=== PATIENT | male | born 1965 | race Caucasian/White ===

== ENCOUNTER → 2016-05-29 | Outpatient (CLI) | payer OTHER ==
[~2016-05-29] MED LIST: GADOBUTROL 7.5 MMOL/7.5 ML VIAL IV ONE; HYDR-2161 PO
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
== END | disposition home or self-care (01) ==
LOC: KCIC MRI 11:25
PROVIDERS: ATTEND Family Medicine
DX: M48.06 Spinal stenosis, lumbar region (principal); I10 Essential (primary) hypertension
CPT/HCPCS: 72158; A9585

== ENCOUNTER → 2016-07-11 | Outpatient (CLI) | payer OTHER ==
[~2016-07-11] MED LIST changes: +ALPR0.25 PO; -GADOBUTROL 7.5 MMOL/7.5 ML VIAL IV ONE; +HYDR-2762 PO; +POTA20TA4 PO
--- NOTE | 2016-07-12 01:41 | PAIN ---
DATE OF SERVICE: 07/11/2016 DIAGNOSES: Lumbar radiculopathy with lumbar degenerative disk disease and post-lumbar laminectomy syndrome. HISTORY OF PRESENT ILLNESS: The patient is a 51-year-old male who returns for followup, last seen several years ago, but has significant pain returning now in the base of the low back and in the bilateral lower extremities, worse on the right than the left with posterior gluteus, posterior lateral thigh, posterior thigh, posterior lower leg, lateral lower leg and into the foot involving all his toes, especially the lateral toes on the right side, but also into the left posterior gluteus, posterior lateral thigh with some burning sensation, tingling and numbness radiation, stabbing, throbbing, sharp shooting pains, burning, aching as well. The patient reports it is difficult to sit, stand and walk secondary to the pain. He had recently had an MRI scan of the lumbar spine showing multilevel degenerative disk disease, significant at L3-L4, the right eccentric disk protrusion, abuts the descending right L4 nerve, also L5-S1 central disk extrusion with mild inferior migration abutting the left S1 nerve, but not causing mass effect and asymmetric disk height, worse on the left. The patient reports it is much worse with standing, walking, changing positions, reports it awakens him from sleep once or twice a night, but not every night, does not affect his bowel or bladder control significantly, but does affect his ability to walk, he is using a cane currently in his right hand. The patient reports his disability rating from 0 to 10, 10 being the worst, as a 7 with family and home responsibilities and recreation, 8 with sexual behavior, 5 with social activity, 5 with self-care and life support activities. The patient has been taking hydrocodone also exercising, doing some stretching. He had physical therapy in the past as well as counseling on exercises that he continues to do at home that he was shown in his physical therapy classes in the past, but reports that this is not significantly helping. He is trying to walk every day, but it has been limiting his ability to do so as well secondary to pain radiating into his back and lower extremities. PAST MEDICAL HISTORY: Significant for hypertension, some urinary retention, arthritis, leg weakness. PREVIOUS SURGERY: Include lumbar diskectomy L4-L5, right rotator cuff repair, patchy left lung, lung lavage, and previous kidney stones. CURRENT MEDICATIONS: List includes Xanax, hydrocodone and potassium replacement. ALLERGIES: The patient has no known drug allergies. FAMILY HISTORY: Significant for no major medical problems or conditions that he is aware of. SOCIAL HISTORY: The patient does not drink alcohol, does not smoke. He is single, has 2 children living at home and lives locally in [place], [place]. REVIEW OF SYSTEMS: The patient's review of systems is positive for those items mentioned in history of present illness. All systems reviewed and otherwise negative. It is complete, full and well documented on the patient's chart. PHYSICAL EXAMINATION: VITAL SIGNS: The patient's blood pressure 128/85, pulse 80, respirations 18, temperature 98.8 degrees Fahrenheit, height is 5 feet 6 inches, weight is 137 pounds. GENERAL: The patient is awake, alert, oriented, appropriate, very pleasant demeanor. HEENT: Head shows normocephalic, atraumatic. Extraocular movements are intact and symmetrical. Oral cavity shows mucous membranes moist and pink. Dentition is intact. NECK: Shows anterior throat supple without palpable lymphadenopathy noted. Swallow reflex is symmetrical. Neck shows full rotational motion of cervical spine, both laterally as well as extension and flexion without difficulty. CHEST: Shows breath sounds clear to auscultation bilaterally. Normal on inspection. No wheezes, rales or rhonchi are auscultated. HEART: Shows S1 and S2 clear. No murmurs auscultated. ABDOMEN: Soft, nontender, nondistended. No palpable organomegaly is noted. No rebound or guarding demonstrated. BACK: The patient's back shows spine grossly in the midline. Well-healed surgical scar is noted in the lumbar distribution with some minor flattening of lumbar lordotic curvature. Normal thoracic kyphotic curvature. Lumbar paraspinous musculature shows symmetrical on inspection with palpation shows very firm stiff musculature throughout the upper, middle and lower distribution of paraspinous muscles, which is moderately tender, but not with radiation. The patient shows no trigger points, no asymmetry of the lumbar paraspinous musculature, with palpation over the sacrum shows nontender over the sacroiliac regions. The patient shows good rotational motion about 10 degrees, right and left lateral as well as extension to greater than 10 degrees, forward flexion at 45 degrees without significant pain reported in the low back. Lower extremities show deep tendon reflexes 1+ in the patellar and tendo calcaneus tendons are equal. Motor exam is strong with dorsiflexion, extension, quadriceps and hamstring flexion, about 4/5 on the right and 5/5 on the left throughout. Peripheral pulses are 1+ posterior tibial and dorsalis pedis pulses. No peripheral edema is noted. No clubbing, no cyanosis. Lower extremities are warm and dry to touch, equal in color and appearance. Straight leg raise noted to be grossly positive on the right at about 40 degrees, with pain into the posterior gluteus, posterior thigh, lateral thigh, which is decreased with knee flexion. Left side is negative. Gaenslen's and Parrish's maneuvers are negative bilaterally as well. He is able to stand. It is difficult to try to stand on his toes as he loses balance and loses balance from putting all his weight on his right foot. He is walking with a slight shuffling gait, appears to favor the right lower extremity and again has a cane with him using in his right hand. IMPRESSION: 1. This is a 51-year-old male with long history of low back, bilateral lower extremity pain, worse on the right side than the left with radicular symptoms as noted. 2. MRI scan as noted. 3. Hypertension. 4. Arthritis. PLAN: Options were discussed with the patient including conservative medical management, physical therapy, interventional technique. He would like to pursue interventional techniques as he is currently doing physical therapy exercises on his own and walking as best he can. We will wait for preauthorization with his insurance provider. We will plan on return to the clinic in approximately 1 week for caudal approach epidural steroid injection at that time. MARIUSZ BAKER MD DR: CHRISTIAN/richie JOB#: [id number] / [id number]
== END | disposition home or self-care (01) ==
LOC: PNCL 10:26
PROVIDERS: ATTEND Anesthesiology
DX: M51.16 Intervertebral disc disorders with radiculopathy, lumbar region (principal); M96.1 Postlaminectomy syndrome, not elsewhere classified
CPT/HCPCS: 99214

== ENCOUNTER → 2016-07-25 | Outpatient (CLI) | payer OTHER ==
[~2016-07-25] MED LIST changes: +IOHEXOL 180 MG/ML 10 ML VIAL. ONE; +methylPREDNISolone ACETATE 40 MG/ML VIAL. ONE; +methylPREDNISolone ACETATE 80 MG/ML VIAL. ONE
--- NOTE | 2016-07-25 14:11 | PAIN ---
DATE OF SERVICE: 07/25/2016 PROGRESS NOTE FOR PAIN CLINIC DIAGNOSES: Lumbar radiculopathy with lumbar degenerative disk disease and lumbar post-laminectomy syndrome. HISTORY OF PRESENT ILLNESS: The patient is a 51-year-old male, who returns for followup status post initial evaluation and preauthorization for a caudal epidural steroid injection. The patient ____ this returns today reporting still significant pain in the low back, bilateral lower extremities, somewhat worse on the right than the left with pain in the right great toe as well, which having fusion ____. The patient reports pain anywhere from 5 to 9 on a scale 10, currently at 5, this is aching, sharp, dull, tight shooting radiating constant, can be severe with activity. The patient reports no new motor or sensory deficits, no new bowel or bladder incontinence, but still significant pain is noted in the low back and lower extremities. PHYSICAL EXAMINATION: VITAL SIGNS: The patient's blood pressure 116/78, pulse 77, respirations are 18, temperature 98.1 degrees Fahrenheit. Height is 5 feet 6 inches, weighs 140 pounds. GENERAL: The patient is awake, alert, oriented, appropriate, very pleasant demeanor. HEENT: Shows normocephalic, atraumatic. Extraocular movements are intact and symmetrical. Oral cavity shows mucous membranes moist and pink. Dentition intact. NECK: Shows anterior throat supple. CHEST: Shows normal on inspection. Breath sounds are clear to auscultation bilaterally. HEART: Shows S1 and S2 clear. ABDOMEN: Soft, nontender, nondistended. No palpable organomegaly is noted. No rebound or guarding demonstrated. BACK: Shows spine grossly midline, some flattening of lumbar lordotic curvature is again appreciated. Lumbar paraspinous musculature shows some moderate tenderness with palpation diffusely in the middle and lower distribution, but without radiation, asymmetry and musculature tight firm, but normal muscle girth. No tenderness over the sacrum or sacroiliac regions. EXTREMITIES: Lower extremities show deep tendon reflexes at 1+ in the patellar and tendo calcaneus tendons are equal. Motor exam is strong with approximately 4 on a scale of 5, the right dorsiflexion and extension and 5/5 on the left. Options were discussed with the patient and the patient's old chart was reviewed and his current medication regimen updated. Current review of systems updated today as well. We will proceed with a caudal approach epidural steroid injection today with fluoroscopic guidance. Risks were then discussed including, but not limited to bleeding, infection, possibility of epidural hematoma, subsequent neurological compromise, dural punctures, headaches, spinal cord and/or nerve damage, side effects of steroid medication and poor results regarding pain control. The patient understands and wishes to proceed. The patient will return to clinic in approximately 2 weeks for followup, was counseled on return appointment, activity level and side effects to be aware of. DIAGNOSES: Lumbar radiculopathy with lumbar degenerative disk disease and post-lumbar laminectomy syndrome. PROCEDURES: Lumbar caudal approach epidural steroid injection using C-arm fluoroscopic guidance under sterile prep using local anesthetic. MEDICATION INJECTED: Depo-Medrol 120 mg plus 10 mL preservative-free normal saline and 2 mL of Isovue for contrast. CONDITION AT DISCHARGE: Stable. The patient tolerated procedure well and no complications. MARIUSZ BAKER MD DR: CHRISTIAN/richie JOB#: [id number] / [id number]
== END | disposition home or self-care (01) ==
LOC: PNCL 09:21
PROVIDERS: ATTEND Anesthesiology
DX: M51.16 Intervertebral disc disorders with radiculopathy, lumbar region (principal); M96.1 Postlaminectomy syndrome, not elsewhere classified
CPT/HCPCS: 62323; J1030; J1040

== ENCOUNTER → 2016-08-08 | Outpatient (CLI) | payer OTHER ==
--- NOTE | 2016-08-09 01:23 | PN ---
DATE: 08/08/2016 PROGRESS NOTE FOR PAIN CLINIC DIAGNOSES: Lumbar radiculopathy with lumbar degenerative disk disease and post lumbar laminectomy syndrome. HISTORY OF PRESENT ILLNESS: The patient is a 51-year-old male who returns for followup status post caudal approach epidural steroid injection x 1. The patient reports he did very well, at least 75% improvement for the first few days and reduced by 50% improvement until he slipped and fell on some surfaces and stubbed his foot and toe twisting his ankle on the right side. This has been causing some increased pain and he has been walking with a limp and that has been making his back hurt more on the left side. The patient reports otherwise doing fairly well. No new motor or sensory deficits, no new bowel or bladder incontinence or other complaints, rates his pain anywhere from a 5-9 on a scale of 10, it is currently a 5 at this point. The patient reports no new changes. PHYSICAL EXAMINATION: VITAL SIGNS: Today, the patient's blood pressure is 143/72, pulse 78, respirations are 16, temperature is 97.9 degrees Fahrenheit. Weight is 133 pounds. GENERAL: The patient is awake, alert, oriented, appropriate, has a very pleasant demeanor. HEENT: Normocephalic, atraumatic. Extraocular movements are intact and symmetrical. Oral cavity, mucous membranes are moist and pink. Dentition is intact. NECK: Shows anterior throat supple without palpable lymphadenopathy noted. Swallow reflex is symmetrical. CHEST: Normal on inspection. Breath sounds are clear to auscultation bilaterally. HEART: Shows S1 and S2 clear. ABDOMEN: Soft, nontender, nondistended. No palpable organomegaly is noted. No rebound or guarding demonstrated. BACK: Shows spine grossly in the midline. Lumbar paraspinous musculature shows some moderate tenderness with palpation, well-healed surgical scars again noted. Some flattening of lumbar lordotic curvature is demonstrated. The patient shows good rotational motion of the lumbar spine without significant pain or difficulty. EXTREMITIES: The patient's lower extremities showed deep tendon reflexes at 1+ in the patellar and tendo calcaneus tendons are equal. Motor exam is approximately 4 on a scale of 5 with right dorsiflexion, extension and 5/5 on the left. Options were discussed with the patient and the patient's old chart was reviewed as his current medication regimen updated. Current review of systems updated today as well. We will proceed with the second caudal approach epidural steroid injection today with fluoroscopic guidance. Risks were again discussed including, but not limited to bleeding, infection, possibility of epidural hematoma, subsequent neurologic compromise, dural puncture, headaches, spinal cord and/or nerve damage, side effects of steroid medication and poor results regarding pain control. The patient understands and wishes to proceed. The patient will return to clinic in approximately 2 weeks for followup, was counseled on return appointment, activity level and side effects to be aware of. DIAGNOSIS: Lumbar radiculopathy with lumbar degenerative disk disease and post-lumbar laminectomy syndrome. PROCEDURE: Caudal approach epidural steroid injection using C-arm fluoroscopic guidance under sterile prep and drape using local anesthetic under C-arm fluoroscopic guidance. Medications injected is 120 mg Depo-Medrol plus 10 mL preservative free normal saline and 2 cc of Isovue for contrast. CONDITION AT DISCHARGE: Stable. The patient tolerated the procedure well, had no complications. MARIUSZ BAKER MD DR: CHRISTIAN/richie JOB#: [id number] / [id number]
== END | disposition home or self-care (01) ==
LOC: PNCL 09:09
PROVIDERS: ATTEND Anesthesiology
DX: M51.16 Intervertebral disc disorders with radiculopathy, lumbar region (principal); M96.1 Postlaminectomy syndrome, not elsewhere classified
CPT/HCPCS: 62323; J1030; J1040

== ENCOUNTER → 2016-09-07 | Outpatient (CLI) | payer OTHER ==
[~2016-09-07] MED LIST changes: -IOHEXOL 180 MG/ML 10 ML VIAL. ONE; -methylPREDNISolone ACETATE 40 MG/ML VIAL. ONE; -methylPREDNISolone ACETATE 80 MG/ML VIAL. ONE
--- NOTE | 2016-09-08 04:28 | PAIN ---
DATE OF SERVICE: 09/07/2016 DIAGNOSES: Lumbar radiculopathy with lumbar degenerative disk disease and post-lumbar laminectomy syndrome. HISTORY OF PRESENT ILLNESS: The patient is a 51-year-old male who returns for followup status post caudal epidural steroid injection x 2. The patient reports about 75% improvement initially, now about a 50% improvement overall, but still significant improvement after the last injection. The patient reports he was doing much better, was increasing his daily activity with greater ease and comfort. Still pain in the bilateral lower extremities and low back, right side worse than the left with radiation to the posterior gluteus, posterior thighs, lateral thighs, posterior lower legs and into the right foot with tingling, burning, stabbing, shooting pain tight and sharp alternating and also radiating into the right leg and the left leg only to the posterior gluteus, posterior thigh on the left, but all the way down to the foot on the right side and he rates it as severe. The patient reports ____ it was higher than 9 on a scale of 10 with ambulation, standing and walking and as low as a 5, which is where it is today mostly with sitting. The patient reports it awakens him from sleep at night, he has to reposition, take pain medication ____ about 6 hours of sleep at the most. The patient reports no new motor or sensory deficits, no new bowel or bladder incontinence or other complaints. He did quite well after his last injection about 1 month ago. PHYSICAL EXAMINATION: VITAL SIGNS: Today, the patient's blood pressure is 114/81, pulse 90, respirations 20, temperature 98.2 degrees Fahrenheit, weight is 159 pounds. GENERAL: The patient is awake, alert, oriented, appropriate, very pleasant demeanor. HEENT: Head shows normocephalic, atraumatic. Extraocular movements are intact, symmetrical. Oral cavity, mucous membranes are moist and pink. Dentition is intact. NECK: Shows anterior throat supple without palpable lymphadenopathy noted. Swallow reflex is symmetrical. CHEST: Shows normal on inspection. Breath sounds clear to auscultation bilaterally. HEART: Shows S1 and S2 clear. ABDOMEN: Soft, nontender, nondistended. No palpable organomegaly is noted. No rebound or guarding demonstrated. BACK: Shows spine grossly midline. The patient's lumbar paraspinous musculature shows well-healed surgical scar, some mild tenderness with palpation, but without radiation. No atrophy or hypertrophy, no trigger points, no radiation of pain. EXTREMITIES: The patient's lower extremities showed deep tendon reflexes at 1+ in the patellar and tendo calcaneus tendons. Motor exam is strong with 4/5 dorsiflexion, extension on the right and 5/5 on the left. Options were discussed with the patient. We will preauthorize the patient for a third caudal approach epidural steroid injection. He has done very well with the first 2 although the pain returning now, but still significantly improved overall by about 50% total. The patient will wait for preauthorization. We will have him return to clinic, in the meantime we will try Medrol Dosepak. The patient was given instruction as well as side effects to be aware of with the medication, will follow up as scheduled. MARIUSZ BAKER MD DR: CHRISTIAN/richie JOB#: [id number] / [id number]
== END | disposition home or self-care (01) ==
LOC: PNCL 10:34
PROVIDERS: ATTEND Anesthesiology
DX: M51.16 Intervertebral disc disorders with radiculopathy, lumbar region (principal); M96.1 Postlaminectomy syndrome, not elsewhere classified
CPT/HCPCS: 99212

== ENCOUNTER → 2016-09-28 | Outpatient (CLI) | payer OTHER ==
[~2016-09-28] MED LIST changes: +IOHEXOL 180 MG/ML 10 ML VIAL. ONE; +methylPREDNISolone ACETATE 40 MG/ML VIAL. ONE; +methylPREDNISolone ACETATE 80 MG/ML VIAL. ONE
--- NOTE | 2016-09-29 04:07 | PAIN ---
DATE OF SERVICE: 09/28/2016 DIAGNOSES: Lumbar radiculopathy with lumbar degenerative disk disease and post-lumbar laminectomy syndrome. HISTORY OF PRESENT ILLNESS: The patient is a 51-year-old male who returns for followup status post caudal epidural steroid injections x 2, last on 09/08/2015. The patient did very well with good reduction in pain, reports ____ about 50% improved, we ____ previous authorization for his next injection. He has obtained it now and would like to proceed. He has pain in the low back, bilateral lower extremities, mostly on the right side and in the posterior gluteus, posterior thigh, radiating to the lower leg into the lateral aspect of the foot on the right side, aching, sharp, shooting, stabbing, burning and tingling with radiating severe pain, becoming almost unbearable, also has some difficulty with his right foot. He had a fracture about a year ago and is having surgery on that later this month. The patient reports this pain as a 9 on a scale of 10 at its worst, is 5 at its least, and currently is 7 on a scale of 10 today. The patient reports no new motor or sensory deficits, no new bowel or bladder incontinence or other complaints. PHYSICAL EXAMINATION: VITAL SIGNS: The patient's blood pressure 136/83, pulse 90, respirations 18, temperature 98.2 degrees Fahrenheit, height is 5 feet 6 inches, weight is 134 pounds. GENERAL: The patient is awake, alert, oriented, appropriate, very pleasant demeanor. HEENT: Head shows normocephalic, atraumatic. Extraocular movements are intact and symmetrical. Oral cavity shows mucous membranes moist and pink. Dentition is intact. NECK: Shows anterior throat supple. CHEST: Shows normal on inspection. Breath sounds clear to auscultation bilaterally. HEART: Shows S1 and S2 clear. ABDOMEN: Soft, nontender, nondistended. BACK: Shows spine grossly midline with some minor flattening of the lumbar lordotic curvature on inspection, but with symmetrical paraspinous musculature. Well-healed surgical scars noted in the lumbar distribution. With palpation shows some moderate tenderness throughout the upper and lower distribution of paraspinous muscles bilaterally, it is firm, but without radiation and without asymmetry, no tenderness over the sacrum or sacroiliac regions. The patient shows good rotation and motion of lumbar spine, both laterally as well as extension and flexion without difficulty. EXTREMITIES: Lower extremities showed deep tendon reflexes 1+ in the patellar and tendo calcaneus tendons. Motor exam is strong currently 4 on a scale of 5 on the right and 5/5 on the left with dorsiflexion and extension. Quadriceps and hamstring flexion 5/5 and equal. Options were discussed with the patient at this time. The patient's old chart was reviewed as his current medication regimen updated. Current review of systems updated today as well. We will proceed with the third in the series caudal epidural steroid injection with fluoroscopic guidance. Risks were again discussed including, but not limited to bleeding, infection, possibility of epidural hematoma, subsequent neurologic compromise, dural punctures, headaches, spinal cord and/or nerve damage, side effects of steroid medications and poor results regarding pain control. The patient understands and wished to proceed. The patient will return to clinic in approximately 2 weeks for followup, was counseled on return appointment, activity level and side effects to be aware of. DIAGNOSIS: Lumbar radiculopathy with lumbar degenerative disk disease and post-lumbar laminectomy syndrome. PROCEDURE: Caudal approach epidural steroid injection using C-arm fluoroscopic guidance under sterile prep and drape using local anesthetic. Medications injected is total of 120 mg Depo-Medrol plus 10 mL preservative-free normal saline and 2 mL of Isovue for contrast. CONDITION AT DISCHARGE: Stable. The patient tolerated procedure well, had no complications. MARIUSZ BAKER MD DR: CHRISTIAN/richie JOB#: [id number] / [id number]
== END | disposition home or self-care (01) ==
LOC: PNCL 09:29
PROVIDERS: ATTEND Anesthesiology
DX: M51.16 Intervertebral disc disorders with radiculopathy, lumbar region (principal); M96.1 Postlaminectomy syndrome, not elsewhere classified; Z88.0 Allergy status to penicillin; Z88.2 Allergy status to sulfonamides
CPT/HCPCS: 62323; J1030; J1040

== ENCOUNTER 2016-11-29 11:40 | Emergency (ER) | payer OTHER ==
[~2016-11-29] VITALS: Ht 165.1 cm; Wt 63.5 kg
[~2016-11-29 11:40] MED LIST changes: -IOHEXOL 180 MG/ML 10 ML VIAL. ONE; -methylPREDNISolone ACETATE 40 MG/ML VIAL. ONE; -methylPREDNISolone ACETATE 80 MG/ML VIAL. ONE
[2016-11-29 11:49] VITALS: BP 146/91
[2016-11-29] MEDS ORDERED: IBUPROFEN 800 MG TABLET. PO ONE (12:30)
[2016-11-29] MEDS ORDERED: CYCLOBENZAPRINE 10 MG TABLET. PO ONE (12:30)
[2016-11-29] MEDS ORDERED: HYDROcodone/APAP 5/325MG 1 TAB TABLET PO ONE (12:30)
--- NOTE | 2016-11-29 12:57 | RAD ---
Sacrum and coccyx plain films Indication: Trauma 2 days ago. Tailbone pain. History of surgery discectomy L4-L5 in 1996. Technique: 3 views of the sacrum. Comparison: Previous study from 12/15/2003 Findings: Transitional vertebral anatomy. The sacrum and coccyx are in normal anatomic alignment. Large L5 transverse processes are noted articulating with sacrum suggesting. SI joints are within normal limits. No compression deformities of the visualized lower lumbar spine. No obvious fractures of these coccyx. Impression: Large L5 transverse processes articulate in with sacrum. Correlate with Bertolotti's syndrome.
--- NOTE | 2016-11-29 15:48 | RAD ---
CT of the lumbar spine without contrast, 11/29/2016: History: Fall, pain Noncontrast scans were obtained with multiplanar reconstructions produced. There is a transitional-type vertebra at the lumbosacral junction for. For purposes of this report this will be considered to be a partially sacralized L5 segment. No fracture or dislocation is identified. There is a vacuum disc phenomenon with disc space narrowing and moderate marginal spurring at L4-5. There are moderate scattered spurs at multiple other levels in the lumbar spine. There are moderate degenerative changes involving multiple facet joints bilaterally. There are degenerative changes at sacroiliac joints, more so on the right. At L1-2 there is moderate broad-based posterior disc bulging. The thecal sac measures 10 mm in AP diameter at the midline. At L2-3 there is also moderate broad-based posterior disc bulging. This is causing borderline central spinal stenosis at that level. There is moderate posterior marginal spurring and disc bulging at L3-4. The disc bulging is greatest laterally on the left. There is mild foraminal encroachment more so on the right. At L4-5 there is moderate posterior marginal spurring and disc bulging most prominent just to the left of midline. This effaces the epidural fat along the anterior aspect of the left L5 nerve root. There is mild inferior foraminal narrowing bilaterally. There is mild marginal spurring posteriorly at L5-S1. The central spinal canal and neural foramina are well maintained A 5 mm nonobstructing intrarenal calculus is noted in the left kidney. Aortoiliac calcific plaquing is present. IMPRESSION: 1. Moderate multilevel degenerative change as described above. 2. No acute bony abnormality is detected. PQRS Compliance Statement: One or more of the following individualized dose reduction techniques were utilized for this examination: 1. Automated exposure control 2. Adjustment of the mA and/or kV according to patient size 3. Use of iterative reconstruction technique
[2016-11-29] MEDS ORDERED: HYDR-971 PO (16:06)
[2016-11-29] MEDS ORDERED: CYCL10TA2 PO (16:06)
--- NOTE | 2016-11-29 16:06 | PHYS DOC ---
Past Medical History Past Medical History: No Pertinent History Past Surgical History: Other Additional Past Surgical Histo: R foot, lower back Alcohol Use: None Drug Use: None Adult General Chief Complaint Chief Complaint: BACK PAIN OR INJURY HPI HPI Patient is a 51 year old male presents to the emergency department stating that he has having low sacrum to coccyx area pain and discomfort. He states that he had pins in his right toes in which she was supposed to follow-up on Sunday to have them removed. He states that he went out into the rain today with a doctor's appointment. Following is having pain and discomfort. Patient states that he is having increased pain and discomfort no loss of bowel or bladder no numbness or tingling down to the extremities. He states he is almost out of his hydrocodone for pain and discomfort. Patient denies any further symptomology at this time. He states he has been taken some of his narcotics at home, hydrocodone, which is helped with his pain and discomfort minimally. Review of Systems Review of Systems Constitutional: Denies fever or chills [] Eyes: Denies change in visual acuity, redness, or eye pain [] HENT: Denies nasal congestion or sore throat [] Respiratory: Denies cough or shortness of breath [] Cardiovascular: No additional information not addressed in HPI [] GI: Denies abdominal pain, nausea, vomiting, bloody stools or diarrhea [] : Denies dysuria or hematuria [] Musculoskeletal: Complaining of low sacrum to coccyx pain and discomfort. Integument: Denies rash or skin lesions [] Neurologic: Denies headache, focal weakness or sensory changes [] Endocrine: Denies polyuria or polydipsia [] Current Medications Current Medications Current Medications Medications (Trade) Dose Ordered Sig/[facility] Start Time Stop Time Status Last Admin Dose Admin Acetaminophen/ Hydrocodone Bitart (Lortab 5/325) 2 tab 1X ONCE 11/29/16 12:30 11/29/16 12:31 DC 11/29/16 12:11 2 TAB Cyclobenzaprine HCl (Flexeril) 10 mg 1X ONCE 11/29/16 12:30 11/29/16 12:31 DC 11/29/16 12:10 10 MG Ibuprofen (Motrin) 800 mg 1X ONCE 11/29/16 12:30 11/29/16 12:31 DC 11/29/16 12:10 800 MG Allergies Allergies Allergies Coded Allergies Type Severity Reaction Last Updated Verified Penicillins Allergy Intermediate 05/29/16 Yes Sulfa (Sulfonamide Antibiotics) Allergy Intermediate 05/29/16 Yes Physical Exam Physical Exam Constitutional: Well developed, well nourished, no acute distress, non-toxic appearance. [] HENT: Normocephalic, atraumatic, bilateral external ears normal, oropharynx moist, no oral exudates, nose normal. [] Eyes: PERRLA, EOMI, conjunctiva normal, no discharge. [] Neck: Normal range of motion, no tenderness, supple, no stridor. [] Cardiovascular:Heart rate regular rhythm, no murmur [] Lungs & Thorax: Bilateral breath sounds clear to auscultation []] Skin: Warm, dry, no erythema, no rash. [] Back: No thoracic spine tenderness, no step-offs no deformities no crepitus noted. Patient did have tenderness noted in the lumbar spine and coccyx area however there was no step-offs no deformities no crepitus noted. Extremities: No tenderness, no cyanosis, no clubbing, ROM intact, no edema. [] Neurologic: Alert and oriented X 3, normal motor function, normal sensory function, no focal deficits noted. [] Psychologic: Affect normal, judgement normal, mood normal. [] Current Patient Data Vital Signs Vital Signs Date Time Temp Pulse Resp B/P (MAP) Pulse Ox O2 Delivery O2 Flow Rate FiO2 11/29/16 12:11 20 97 Room Air 11/29/16 11:49 98.0 99 98.0 EKG EKG [] Radiology/Procedures Radiology/Procedures [][facility] [address] [place] [address] IMAGING REPORT Signed PATIENT: RUPA BARRERA ACCOUNT: [id number] : 1965 LOCATION: ER AGE: 51 SEX: M EXAM STATUS: REG ER ORD. PHYSICIAN: ARTHUR ZIEGLER PATHOLOGY LABORATORY DIRECTOR REASON: fell sunday pain and discomfort PROCEDURE: SACRUM & COCCYX 3V Sacrum and coccyx plain films Indication: Trauma 2 days ago. Tailbone pain. History of surgery discectomy L4-L5 in 1996. Technique: 3 views of the sacrum. Comparison: Previous study from 12/15/2003 Findings: Transitional vertebral anatomy. The sacrum and coccyx are in normal anatomic alignment. Large L5 transverse processes are noted articulating with sacrum suggesting. SI joints are within normal limits. No compression deformities of the visualized lower lumbar spine. No obvious fractures of these coccyx. Impression: Large L5 transverse processes articulate in with sacrum. Correlate with Bertolotti's syndrome. DICTATED and SIGNED BY: ALAYNA RIVAS DO DATE: 11/29/16 1248 CC: ARTHUR ZIEGLER APRN; NON,STAFF; RUPA SOTO MD ~ [facility] [address] [place], [place] [id number] IMAGING REPORT Signed PATIENT: RUPA BARRERA ACCOUNT: [id number] : 1965 LOCATION: ER AGE: 51 SEX: M EXAM STATUS: REG ER ORD. PHYSICIAN: ARTHUR ZIEGLER APRN REASON: please include the sacrum/coccyx PROCEDURE: CT LUMBAR SPINE WO CONTRAST CT of the lumbar spine without contrast, 11/29/2016: History: Fall, pain Noncontrast scans were obtained with multiplanar reconstructions produced. There is a transitional-type vertebra at the lumbosacral junction for. For purposes of this report this will be considered to be a partially sacralized L5 segment. No fracture or dislocation is identified. There is a vacuum disc phenomenon with disc space narrowing and moderate marginal spurring at L4-5. There are moderate scattered spurs at multiple other levels in the lumbar spine. There are moderate degenerative changes involving multiple facet joints bilaterally. There are degenerative changes at sacroiliac joints, more so on the right. At L1-2 there is moderate broad-based posterior disc bulging. The thecal sac measures 10 mm in AP diameter at the midline. At L2-3 there is also moderate broad-based posterior disc bulging. This is causing borderline central spinal stenosis at that level. There is moderate posterior marginal spurring and disc bulging at L3-4. The disc bulging is greatest laterally on the left. There is mild foraminal encroachment more so on the right. At L4-5 there is moderate posterior marginal spurring and disc bulging most prominent just to the left of midline. This effaces the epidural fat along the anterior aspect of the left L5 nerve root. There is mild inferior foraminal narrowing bilaterally. There is mild marginal spurring posteriorly at L5-S1. The central spinal canal and neural foramina are well maintained A 5 mm nonobstructing intrarenal calculus is noted in the left kidney. Aortoiliac calcific plaquing is present. IMPRESSION: 1. Moderate multilevel degenerative change as described above. 2. No acute bony abnormality is detected. PQRS Compliance Statement: One or more of the following individualized dose reduction techniques were utilized for this examination: 1. Automated exposure control 2. Adjustment of the mA and/or kV according to patient size 3. Use of iterative reconstruction technique DICTATED and SIGNED BY: SANDRA DOWELL MD DATE: 11/29/16 1534 CC: ARTHUR ZIEGLER APRN; NON,STAFF; RUPA SOTO MD ~ Course & Med Decision Making Course & Med Decision Making Pertinent Labs and Imaging studies reviewed. (See chart for details) X-rays of the sacrum and coccyx area showed a large L5 transverse process articulate in with the sacrum. Correlate with Toradol IV syndrome. Spoke with Katie with Dr. Jennings's office as the patient had first provided me with the information that he was seen a neurosurgeon in another facility. She called back and needed to speak with Dr. buck himself. She didn't turn called back and stated that they would probably want to have a CT scan done of the back. CT scan was then ordered. Patient had then stated that he was seen Dr. Grimaldo. Attempted to call Dr. Grimaldo at 1410 in which I spoke with both Leslie and Dr. Grimaldo in regards to patient with recommendations of CT scan to be completed. [address] Grimaldo regards to CT results as being negative. Dr. Grimaldo emphasized that if the patient needs pain control he is to follow-up with his primary care physician as he does not provide pain control as he has performed surgery. Patient will be discharged home in stable condition with recommendations for hydrocodone for severe pain and discomfort. Ibuprofen for pain and discomfort to help with inflammation. Patient will be provided with Flexeril. Patient will be discharged home in stable condition with signs and symptoms to return back to emergency department. Patient agrees with discharge instructions treatment regimens and follow-up recommendations. All questions were answered at the patient's bedside. [] Dragon Disclaimer Dragon Disclaimer This electronic medical record was generated, in whole or in part, using a voice recognition dictation system. Departure Departure Impression: Primary Impression: Sacrum sprain Disposition: HOME, SELF-CARE Condition: STABLE Referrals: RUPA SOTO MD (PCP) Patient Instructions: Tailbone Injury, [id number] Additional Instructions: Activity as tolerated. Ice packs on 20 minutes off 20 minutes several times a day. Hydrocodone will cause drowsiness don't take any be alert and oriented. Flexeril will cause drowsiness do not take any be alert and oriented. Ibuprofen 800 mg every 8 hours with food stop taking few develop an upset stomach. Follow-up with Dr. Grimaldo as needed. Follow-up to primary care physician for pain management. Return back to emergency prior signs symptoms of become worse. Scripts Cyclobenzaprine Hcl (CYCLOBENZAPRINE HCL) 10 Mg Tablet 10 MG PO TID, #30 TAB Prov: ARTHUR ZIEGLER APRN 11/29/16 Hydrocodone/Apap 5-325 (NORCO 5-325 TABLET) 1 Each Tablet 1 TAB PO PRN Q6HRS Y for PAIN, #20 TAB 0 Refills Prov: ARTHUR ZIEGLER APRN 11/29/16 Problem Qualifiers Primary Impression: Sacrum sprain Encounter type: initial encounter Qualified Codes: S33.8XXA - Sprain of other parts of lumbar spine and pelvis, initial encounter ARTHUR ZIEGLER APRN Nov 29, 2016 16:06
== END 2016-11-29 16:19 | disposition home or self-care (01) ==
LOC: ER 11:40
DX: S33.8XXA Sprain of other parts of lumbar spine and pelvis, initial encounter (principal); X58.XXXA Exposure to other specified factors, initial encounter; Y93.89 Activity, other specified; Y92.89 Other specified places as the place of occurrence of the external cause; Y99.8 Other external cause status
CPT/HCPCS: 72131; 72220; 99284-25

== ENCOUNTER → 2017-01-15 | Outpatient (CLI) | payer OTHER ==
[~2017-01-15] MED LIST changes: +CYCL10TA2 PO; +HYDR-971 PO
--- NOTE | 2017-01-15 13:25 | KCIC ---
MRI Lumbar Spine without contrast History: Lumbar spondylosis, fall November 2016, burning sensation and numbness, pain into the right lower extremity, previous surgery Technique: Multiplanar, multi sequential noncontrast MR imaging was performed of the lumbar spine. Contrast: None Comparison: 05/29/[address] exam November 29, 2016 Findings: There again appears to be transitional anatomy. For the purpose of this report and based on visualization of ribs on the CT exam, there is a formed intervertebral disc space at what is considered S1-S2. There is negligible posterior subluxation of what is considered L5 relative to S1 and L2 relative L3 as seen previously. Conus terminates at L1. There is no significant marrow edema. There is again moderate to severe degenerative disc disease L5-S1 and L4-5 and to a somewhat lesser degree at L3-4, mild to moderate degenerative disc disease at L2-3. Mild L5-S1 endplate edema is likely reactive/degenerative in etiology. There are posterior annular tears L2-3 and L3-4. L2-L3: There is minimal disc osteophyte complex and bulge. Spinal canal and neural foramina are adequate. L3-L4: There is again disc osteophyte complex and bulge. There is mild facet hypertrophic change. There is mild narrowing of the right neural foramen, left neural foramen adequate. Spinal canal is overall adequate. L4-L5: There is again right laminectomy defect. There is again disc osteophyte complex and superimposed shallow posterior bulge/protrusion. There is again mild left and mild to moderate right neural foramina compromise, disc osteophyte complex near the undersurface of the extraforaminal right L4 nerve root without displacement. Descending nerve roots are again peripherally displaced in the thecal sac. There is similar very mild narrowing of the far right lateral recess. L5-S1: There is again extrusion extending below the intervertebral disc space centrally in the left paracentral region, not significantly changed up to approximately 13 mm transverse by 7 mm CC by 5 mm AP. There is minimal indentation upon the ventral thecal sac without significant impingement of the descending S1 nerve roots. There is again moderate narrowing of the left neural foramen, right neural foramen overall adequate. There is again clumping of the nerve roots which are peripherally displaced in the thecal sac. There is again band of signal intensity traversing the thecal sac which may be due to component of the clumped nerve roots, overall unchanged appearance. S1-S2: Spinal canal and neural foramina are adequate. Impression: 1. There again appears to be transitional anatomy of the lumbar spine. Based on visualization of ribs on November 2016 CT exam, there is a formed intervertebral disc space at what is considered S1-S2. There is negligible posterior subluxation of what is considered L5 relative to S1 and L2 relative to L3 as seen previously. 2. There is moderate to severe degenerative disc disease L5-S1 and L4-5 and to lesser degree at L3-4 and L2-3. 3. There is no new significant lumbar spinal stenosis. There is again extrusion extending below the L5-S1 intervertebral disc space without significant neural impingement. 4. There is mild to moderate neural foramina compromise as stated greatest on the left at L5-S1 and on the right at L4-5. 5. There is again clumping of the nerve roots which are peripherally located in the thecal sac from L4-5 into the sacrum, sequela of arachnoiditis possible. Electronically signed by: Shola Burns MD (01/15/2017 1:21 PM) [email or web address]
== END | disposition home or self-care (01) ==
LOC: KCIC MRI 11:29
PROVIDERS: ATTEND Neurological Surgery
DX: M47.816 Spondylosis without myelopathy or radiculopathy, lumbar region (principal); M51.37 Other intervertebral disc degeneration, lumbosacral region; G03.9 Meningitis, unspecified; R20.0 Anesthesia of skin
CPT/HCPCS: 72148

== ENCOUNTER → 2018-07-18 | Outpatient (CLI) | payer OTHER ==
[~2018-07-18] MED LIST changes: -HYDR-2762 PO; +HYDR-2765 PO; +HYDR-2769 PO; +HYDR-3164 PO; -HYDR-971 PO; +HYDR12.575 PO; +OXYC1TAB22 PO
--- NOTE | 2018-07-18 15:02 | KCIC ---
MRI of the lumbar spine without contrast 07/18/2018 CLINICAL HISTORY: Low back pain which radiates down both legs for last 3 weeks. TECHNIQUE: Unenhanced T1-weighted and T2-weighted sagittal and axial and inversion recovery sagittal images the lumbar spine were obtained. FINDINGS: Comparison study is dated 01/15/2017. The patient appears to have transitional vertebral anatomy. For the purposes of this dictation 5 lumbar vertebrae have been assumed. The last reasonly well-defined lumbar-appearing disc space will be referred to as L5-S1. A hypoplastic disc is seen at S1-2. Very mild S-shaped curvature of the thoracolumbar spine is seen. Degenerative signal changes and loss of height are seen involving all of the disks of the lumbar spine. Degenerative signal changes are seen within the marrow surrounding these discs. The conus medullaris is normal morphology, position, and signal characteristics. Clumping and thickening of the nerve roots of the cauda equina are seen involving the mid and lower lumbar and sacral spinal canal consistent with arachnoiditis. The L1-2 disc space is within normal limits. At the L2-3 disc space there is a mild generalized disc bulge. Degenerative changes are seen involving the facet joints bilaterally. There is mild ligamentum flavum hypertrophy bilaterally. These findings when combined do not result in significant central spinal canal or neural foraminal stenosis. At the L3-4 disc space there is a mild to moderate generalized disc bulge. Degenerative changes are seen involving the facet joints bilaterally. There is mild to moderate ligamentum flavum hypertrophy bilaterally. These findings when combined result in mild central spinal canal stenosis. No neural foraminal stenosis is seen. At the L4-5 disc space, the patient is post right hemilaminotomy. There is a mild generalized disc bulge. Degenerative changes are seen involving the facet joints bilaterally. These findings do not result in significant central spinal canal stenosis. No neural foraminal stenosis is seen. At the L5-S1 disc space there is a mild to moderate generalized disc bulge which is eccentric to the left. Superimposed on this disc bulge is a central/left paracentral focal disc herniation which extrudes inferiorly. This measures 5 mm in AP diameter. These findings when combined result in mild left-sided central spinal canal stenosis. Mild to moderate left neural foraminal stenosis is seen. The right neural foramen is patent. Since the previous examination there has been no significant interval change. IMPRESSION: 1. The patient is post right hemilaminotomy at L4-5. 2. The changes of degenerative disc disease are seen throughout the lumbar spine. These findings result in mild central spinal canal stenosis at L3-4 and mild left-sided central spinal canal stenosis at L5-S1. Mild to moderate left neural foraminal stenosis is seen at L5-S1. 3. 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 Electronically signed by: Sonido Contreras MD (07/18/2018 2:59 PM) [email or web address]
== END | disposition home or self-care (01) ==
LOC: KCIC MRI 09:59
PROVIDERS: ATTEND Family Medicine
DX: M51.36 Other intervertebral disc degeneration, lumbar region (principal); M48.07 Spinal stenosis, lumbosacral region; M51.27 Other intervertebral disc displacement, lumbosacral region
CPT/HCPCS: 72148

== ENCOUNTER → 2018-07-29 | Outpatient (CLI) | payer OTHER ==
--- NOTE | 2018-07-30 08:40 | PAIN ---
DATE OF SERVICE: 07/29/2018 DIAGNOSES: Lumbar radiculopathy with lumbar degenerative disk disease and post-lumbar laminectomy syndrome. HISTORY OF PRESENT ILLNESS: The patient is a 53-year-old male who returns for followup status post previous lumbar caudal approach epidural steroid injections, last seen 09/2016. The patient did very well with about 80% improvement for several months following the injection. The patient reports that he has put this off for about a year, getting back to get some treatment done. He has done some physical therapy in the meantime, however. Also, some chiropractic treatment, doing exercise daily and he has started physical therapy last week for a new round of physical therapy, which he reports helps, but does not get rid of the pain completely, only feels like it is beneficial in getting his mobility better. The patient has had epidural injections in the past with good results as noted. The patient has also taken hydrocodone as earlier this morning or as recently this morning, which helps too, but only by about 50% or so. The patient reports the pain is still in the low back and in the bilateral posterior hips, posterior left hip, left thigh, left posterior knee, posterior calf and foot, radiating with walking, standing, changing positions, better with sitting or lying down, but it has been waking him from sleep about every other night or more. The patient reports it does affect his ability to walk. He says left leg fatigues much more easily than the right and again sometimes difficult sleeping because of the pain. Generally worse with walking and standing, better with sitting or lying down. The patient is noted to have had previous surgery in the past about 20 years ago and is trying to avoid this again if necessary. The patient reports pain is constant, sharp, stabbing, shooting with some numbness and tingling in the left leg, intermittent in intensity, changes during the day with activity, also some cramping and burning pain in the low back as well. The patient rates his disability rate from 0-10, 10 being the worst, is an 8 with family and home responsibilities, recreation, social activity, and sexual behavior, 7 with self-care, 8 with life support activities. The patient did have a recent MRI scan 07/18/2018 showing post right hemilaminotomy L4-L5, degenerative disk disease throughout the lumbar spine, mild central spinal canal stenosis at L3-L4 and mild left-sided central spinal canal stenosis at L5-S1 with mild left neural foraminal stenosis at L5-S1 as well with a [id number] generalized disk bulge eccentric to the left with superimposed central left paracentral focal disk herniation extruding inferiorly on the L5-S1 level. PHYSICAL EXAMINATION: VITAL SIGNS: Today, the patient's blood pressure 134/93, pulse 66, respirations 18, temperature 98.3 degrees Fahrenheit, height is 5 feet 3 inches and weight is 153 pounds. GENERAL: The patient is awake, alert, oriented, appropriate, very pleasant demeanor. HEENT: Head is normocephalic, atraumatic. Extraocular movements intact and symmetrical. Oral cavity: Mucous membranes are moist and pink. Dentition is intact. NECK: Shows anterior throat supple without palpable lymphadenopathy noted. Swallow reflex is symmetrical. CHEST: Shows normal with inspection. Breath sounds clear to auscultation bilaterally. HEART: Shows S1, S2 clear. No murmurs auscultated. ABDOMEN: Soft, nontender, nondistended. No palpable organomegaly is noted. No rebound or guarding demonstrated. BACK: Shows spine grossly in the midline. Normal appearing thoracic kyphosis and some minor flattening of lumbar lordotic curvature. Well-healed surgical scar noted in the lumbar distribution. Lumbar paraspinous muscle shows symmetrical on inspection and palpation shows moderate tenderness diffusely bilaterally, but only diffusely without significant radiation. The patient has good rotational motion of lumbar spine, both laterally as well as extension and flexion greater than 10 degrees, extension greater than 45 degrees, flexion right and left lateral rotation greater than 10 degrees without significant increase in pain. EXTREMITIES: The patient's lower extremities show deep tendon reflexes at 1+ in the patellar and tendo calcaneus tendons are equal. Motor exam is strong with dorsiflexion, extension, quadriceps and hamstring flexion rated at 5/5 on the right and 4/5 on the left with dorsiflexion, extension, quadriceps and hamstring flexion 5/5 and symmetrical. Peripheral pulses are 1+ posterior tibia. No peripheral edema is noted bilaterally. The patient's straight leg raise noted to be positive on the left at about 35-40 degrees, decreased with knee flexion, right side is negative. Options were discussed with the patient. The patient's old chart was reviewed as his current medication regimen updated. Current review of systems updated today as well. We will preauthorize the patient for a lumbar epidural steroid injection at L5-S1 level for L5-S1 radiculopathy on the left, as noted with symptomatology and recent MRI scan. The patient will continue doing physical therapy as he is currently enrolled in, strength and stretching exercises at home and exercise as tolerated. We will have him return to the clinic for the L5-S1 lumbar epidural steroid injection for L5-S1 left-sided lumbar radiculopathy. MARIUSZ BAKER MD DR: CHRISTIAN/richie JOB#: [id number] / [id number] Silvestre Lakhani MD
== END | disposition home or self-care (01) ==
LOC: PNCL 13:04
PROVIDERS: ATTEND Anesthesiology
DX: M51.16 Intervertebral disc disorders with radiculopathy, lumbar region (principal); M48.061 Spinal stenosis, lumbar region without neurogenic claudication; M96.1 Postlaminectomy syndrome, not elsewhere classified
CPT/HCPCS: G0463

== ENCOUNTER → 2018-08-12 | Outpatient (CLI) | payer OTHER ==
[~2018-08-12] MED LIST changes: +IOHEXOL 180 MG/ML 10 ML VIAL. ONE; +methylPREDNISolone ACETATE 40 MG/ML VIAL. ONE; +methylPREDNISolone ACETATE 80 MG/ML VIAL. ONE
--- NOTE | 2018-08-13 00:50 | PAIN ---
DATE OF SERVICE: 08/12/2018 DIAGNOSES: Lumbar radiculopathy with lumbar degenerative disk disease and post-lumbar laminectomy syndrome. HISTORY OF PRESENT ILLNESS: The patient is a 53-year-old male who returns for followup status post initial evaluation and preauthorization for lumbar epidural steroid injection. The patient has obtained that and would like to proceed. The patient still reports pain in the low back and left lower extremity, greater in the right posterior gluteus, radiating to posterior thigh, posterior calf, tingling, stabbing, described as aching and sharp, shooting across the back, becoming more constant. The patient reports it is a 9 on a scale of 10 at its worst, 7 on average, 5 at its least and is a 7 today. The patient reports no new motor or sensory deficits. No new bowel or bladder incontinence or other complaints. PHYSICAL EXAMINATION: VITAL SIGNS: The patient's blood pressure is 131/79, pulse 65, respirations 16, temperature is 97.9 degrees Fahrenheit, weight is 152 pounds. GENERAL: The patient is awake, alert, oriented, appropriate, very pleasant demeanor. HEENT: Shows normocephalic, atraumatic. Extraocular movements are intact and symmetrical. Oral cavity: Mucous membranes moist and pink. Dentition is intact. NECK: Shows anterior throat supple without palpable lymphadenopathy noted. Swallow reflex is symmetrical. CHEST: Shows normal on inspection. Breath sounds are clear to auscultation bilaterally. HEART: Shows S1, S2 clear. No murmurs auscultated. ABDOMEN: Soft, nontender, nondistended. No palpable organomegaly is noted. No rebound or guarding demonstrated. BACK: Shows spine grossly in the midline. Normal appearing thoracic kyphosis and lumbar lordotic curvature. Lumbar paraspinous muscle shows symmetrical on inspection. On palpation shows some moderate tenderness diffusely bilaterally. The patient has well-healed surgical scar. Once again, the patient's back shows good rotation motion both laterally as well as extension and flexion without difficulty. EXTREMITIES: The patient's lower extremities show deep tendon reflexes at 1+ in the patellar and tendo calcaneus tendons are equal. Motor exam is approximately 4 on a scale of 5 on the left and 5 out of 5 on the right. Peripheral pulses are 1+ posterior tibia. No peripheral edema is noted bilaterally. Options were discussed with the patient. The patient's old chart was reviewed as was his current medication regimen updated. Current review of systems is updated today as well and we will proceed with a lumbar epidural steroid injection, first in the series with fluoroscopic guidance. Risks were again discussed including, but not limited to bleeding, infection, possibility of epidural hematoma, subsequent neurological compromise, dural puncture, headache, spinal cord and/or nerve damage, side effects of steroid medication and poor results regarding pain control. The patient understands and wished to proceed. The patient will return to the clinic in approximately 2 weeks for followup, was counseled on return appointment, activity level and side effects to be aware of. DIAGNOSES: Lumbar radiculopathy with lumbar degenerative disk disease, post-lumbar laminectomy syndrome. PROCEDURE: Lumbar epidural steroid injection, translaminar approach L5-S1 level using C-arm fluoroscopic guidance under sterile prep and drape using local anesthetic. MEDICATION INJECTED: A total of 120 mg Depo-Medrol plus 10 mL of preservative-free normal saline and 2 mL of Isovue for contrast. CONDITION ON DISCHARGE: Stable. The patient tolerated the procedure well, had no complications. MARIUSZ BAKER MD DR: CHRISTIAN/richie JOB#: [id number] / [id number]
== END | disposition home or self-care (01) ==
LOC: PNCL 09:48
PROVIDERS: ATTEND Anesthesiology
DX: M51.16 Intervertebral disc disorders with radiculopathy, lumbar region (principal); M96.1 Postlaminectomy syndrome, not elsewhere classified; Z88.0 Allergy status to penicillin; Z88.2 Allergy status to sulfonamides
CPT/HCPCS: 62323; J1030; J1040; Q9965

== ENCOUNTER → 2018-08-26 | Outpatient (CLI) | payer OTHER ==
[~2018-08-26] MED LIST changes: -IOHEXOL 180 MG/ML 10 ML VIAL. ONE; -methylPREDNISolone ACETATE 40 MG/ML VIAL. ONE; -methylPREDNISolone ACETATE 80 MG/ML VIAL. ONE
--- NOTE | 2018-08-27 09:47 | PAIN ---
DATE OF SERVICE: 08/26/2018 DIAGNOSES: Lumbar radiculopathy with lumbar degenerative disk disease and post-lumbar laminectomy syndrome. HISTORY OF PRESENT ILLNESS: The patient is a 53-year-old male who returns for followup status post lumbar epidural steroid injection x 1. He reports about 70% improvement with no new motor or sensory deficits, but did very well. The pain is beginning to return now in the low back and the left greater than right lower extremity, but much improved. The patient reports he is increasing his distance walking, able to return to household activities, traveling activities with much greater ease and comfort. The patient reports a full 2 weeks he was doing much better. The pain returned just about 2 days ago without any specific injury or accident. He is aware of this, but it does not go down his leg as far as it did on the left side previously. The patient reports no new motor or sensory deficits, no new bowel or bladder incontinence. Describes the pain as stabbing, tingling in the back, aching and dull, shooting in the legs, more on the left side than right, still with the radicular quality in the L5-S1 dermatomal distribution. The patient reports pain is an 8 on a scale of 10 at its worst over the past week, 5 on average and 4 at its least, and is a 5 today. The patient reports no new motor or sensory deficits, no new bowel or bladder incontinence or other complaints. PHYSICAL EXAMINATION: VITAL SIGNS: The patient's blood pressure 125/86, pulse 79, respirations 16, temperature is 98.2 degrees Fahrenheit, height is 5 feet 6 inches, weight is 151 pounds. GENERAL: The patient is awake, alert, oriented, appropriate, very pleasant demeanor. HEENT: Shows normocephalic, atraumatic. Extraocular movements are intact and symmetrical. Oral cavity, mucous membranes are moist and pink. Dentition is intact. NECK: Shows anterior throat supple without palpable lymphadenopathy noted. Swallow reflex symmetrical. CHEST: Shows normal on inspection. Breath sounds are clear to auscultation bilaterally. HEART: Shows S1, S2 clear. No murmurs auscultated. ABDOMEN: Soft, nontender, nondistended. No palpable organomegaly is noted. No rebound or guarding demonstrated. BACK: Shows spine grossly in the midline, normal appearing thoracic kyphosis and lumbar lordotic curvature. Lumbar paraspinous muscle shows symmetrical on inspection, well-healed surgical scar is again noted. Lumbar paraspinous muscle shows moderate tenderness with palpation diffusely bilaterally in the low lumbar distribution, but equal. No tenderness over the spinous processes, sacrum or sacroiliac regions. The patient has good rotational motion of the lumbar spine, both laterally as well as extension and flexion without significant difficulty. EXTREMITIES: The patient's lower extremities show deep tendon reflexes 1+ in the patellar and tendo calcaneus tendons. Motor exam is 4 on a scale of 5 on the left, 5/5 on the right with dorsiflexion and extension. Peripheral pulses are 1+ posterior tibia. No peripheral edema is noted bilaterally. Options were discussed with the patient. The patient's old chart was reviewed as his current medication regimen updated. Current review of systems updated today as well. We will proceed with preauthorization for a second lumbar epidural steroid injection. He did very well after the first injection with about 70% improvement for just over 2 weeks, now the pain is returning, but not as significant, more on the left side than the right at L5-S1 dermatomal distribution. We will preauthorize him for a lumbar epidural steroid injection at L5-S1 level. In the meantime, the patient will try Medrol Dosepak. The patient given instruction as well as side effects to be aware of with the medication and will follow up in approximately one week to plan on second lumbar epidural steroid injection at that time. MARIUSZ BAKER MD DR: CHRISTIAN/richie JOB#: [id number] / [id number]
== END | disposition home or self-care (01) ==
LOC: PNCL 10:03
PROVIDERS: ATTEND Anesthesiology
DX: M51.16 Intervertebral disc disorders with radiculopathy, lumbar region (principal); M96.1 Postlaminectomy syndrome, not elsewhere classified
CPT/HCPCS: G0463

== ENCOUNTER → 2018-09-09 | Outpatient (CLI) | payer OTHER ==
[~2018-09-09] MED LIST changes: +IOHEXOL 180 MG/ML 10 ML VIAL. ONE; +methylPREDNISolone ACETATE 40 MG/ML VIAL. ONE; +methylPREDNISolone ACETATE 80 MG/ML VIAL. ONE
--- NOTE | 2018-09-09 23:42 | PAIN ---
DATE OF SERVICE: 09/09/2018 DIAGNOSIS: Lumbar radiculopathy with lumbar degenerative disk disease and post-lumbar laminectomy syndrome. HISTORY OF PRESENT ILLNESS: The patient is a 53-year-old male who returns for followup status post lumbar epidural steroid injection x 1. The patient reports doing very well, reports about 70% improvement and he was waiting for preauthorization, which he has obtained now and would like to proceed with a second injection today. Pain is still in the low back and left greater than right lower extremity, posterior gluteus, posterior thigh, posterior calf, which is stabbing, sharp, dull, also shooting across the low back, radiating to the left leg, becoming more constant in the back as well as dull in the back. The patient reports it was 9 on a scale of 10 at its worst in the past week, 7 on average and 5 at the least and is 7 today. The patient reports no new motor or sensory deficits, no new bowel or bladder incontinence or other complaints. PHYSICAL EXAMINATION: VITAL SIGNS: The patient's blood pressure is 122/86, pulse 73, respirations 16, temperature 97.9 degrees Fahrenheit, height is 5 feet 6 inches, weight 154 pounds. GENERAL: The patient is awake, alert, oriented, appropriate, very pleasant demeanor. HEENT: Head is normocephalic, atraumatic. Extraocular movements intact and symmetrical. Oral cavity: Mucous membranes moist and pink. Dentition is intact. NECK: Shows anterior throat supple without palpable lymphadenopathy noted. Swallow reflex is symmetrical. CHEST: Shows normal with inspection. Breath sounds are clear to auscultation bilaterally. HEART: Shows S1, S2 clear. No murmurs auscultated. ABDOMEN: Soft, nontender, nondistended. No palpable organomegaly is noted. No rebound or guarding demonstrated. BACK: Shows spine grossly in the midline. Normal-appearing thoracic kyphosis and lumbar lordotic curvature slightly flattened. A well-healed surgical scarring noted. Lumbar paraspinous muscle shows symmetrical on inspection; on palpation shows some moderate tenderness diffusely in the lower lumbar distribution, but only diffusely without radiation. The patient has good rotational motion of lumbar spine, both laterally as well as extension and flexion without significant difficulty. No tenderness over the sacrum or sacroiliac regions. EXTREMITIES: Lower extremities show deep tendon reflexes 1+ in the patellar and tendo calcaneus tendons are equal. Motor exam is approximately 4 on a scale of 5 with left dorsiflexion and extension, 5/5 on the right. Peripheral pulses are 1+ posterior tibia. No peripheral edema is noted. Options were discussed with the patient. The patient's old chart was reviewed as was his current medication regimen updated. Current review of systems updated today as well. We will proceed with a second in the series of lumbar epidural steroid injection today with fluoroscopic guidance. Risks were again discussed including, but not limited to bleeding, infection, possibility of epidural hematoma, subsequent neurologic compromise, dural puncture, headaches, spinal cord and/or nerve damage, side effects of steroid medication and poor results regarding pain control. The patient understands and wished to proceed. The patient will return to clinic in approximately 2 weeks for followup. He was counseled as to return appointment, activity level and side effects to be aware of. DIAGNOSIS: Lumbar radiculopathy with lumbar degenerative disk disease and post-lumbar laminectomy syndrome. PROCEDURE: Lumbar epidural steroid injection, translaminar approach at the L5-S1 level using C-arm fluoroscopic guidance under sterile prep and drape using local anesthetic. MEDICATION INJECTED: A total of 120 mg Depo-Medrol plus 10 mL of preservative-free normal saline and 2 mL of contrast. CONDITION AT DISCHARGE: Stable. The patient tolerated the procedure well, had no complications. MARIUSZ BAKER MD DR: CHRISTIAN/richie JOB#: [id number] / [id number]
== END ==
LOC: PNCL 10:00
PROVIDERS: ATTEND Anesthesiology
DX: M51.16 Intervertebral disc disorders with radiculopathy, lumbar region (principal); M96.1 Postlaminectomy syndrome, not elsewhere classified; M54.5 Low back pain
CPT/HCPCS: 62323; J1030; J1040; Q9965

== ENCOUNTER → 2018-12-16 | Outpatient (CLI) | payer OTHER ==
[~2018-12-16] MED LIST changes: -IOHEXOL 180 MG/ML 10 ML VIAL. ONE; -methylPREDNISolone ACETATE 40 MG/ML VIAL. ONE; -methylPREDNISolone ACETATE 80 MG/ML VIAL. ONE
--- NOTE | 2018-12-16 15:27 | RAD ---
Examination: RENAL COMPLETE BILATERAL History: Bilateral flank pain and hematuria Comparison/Correlation: None Findings: Renal ultrasound exam was performed. Right kidney measures 10.8 cm x 5.3 cm x 4.7 cm. Left kidney measures 12.4 cm x 5 cm x 6.5 cm. Left renal cyst at the interpolar region measures 1.1 cm diameter. No hydronephrosis identified. Renal contours and echotexture are unremarkable. No nephrolithiasis identified. Urinary bladder is mostly decompressed. Impression: No suspicious process. Consider CT of the kidneys without and with contrast according to renal protocol for more complete assessment if mass is a persistent concern. Electronically signed by: Omi Estes MD (12/16/2018 3:24 PM) [facility]
== END | disposition home or self-care (01) ==
LOC: US 12:00
PROVIDERS: ATTEND Family Medicine
DX: N28.1 Cyst of kidney, acquired (principal); R31.9 Hematuria, unspecified
CPT/HCPCS: 76770

== ENCOUNTER → 2019-12-05 | Outpatient (CLI) | payer OTHER ==
--- NOTE | 2019-12-05 11:27 | RAD ---
EXAM: Renal sonogram. HISTORY: Hematuria. TECHNIQUE: Sonographic imaging of the kidneys and bladder was performed. COMPARISON: . FINDINGS: The kidneys normal in size. No solid lesion is seen. There is no hydronephrosis. There is a 1.2 cm simple cyst within the mid zone of the left kidney. The bladder is unremarkable. IMPRESSION: 1. Stable simple left renal cyst measuring 1.2 cm. Follow-up is not routinely recommended for simple cysts. 2. No acute sonographic finding. Electronically signed by: Regina White MD (12/05/2019 11:24 AM) [facility]
== END | disposition home or self-care (01) ==
LOC: US 10:01
PROVIDERS: ATTEND Family Medicine
DX: N28.1 Cyst of kidney, acquired (principal); R31.9 Hematuria, unspecified
CPT/HCPCS: 76770

== ENCOUNTER → 2020-08-27 | Outpatient (CLI) | payer OTHER ==
[~2020-08-27] MED LIST changes: -HYDR-2161 PO; +HYDR-3072 PO
--- NOTE | 2020-08-27 11:51 | KCIC ---
EXAM: Right shoulder, 3 views. HISTORY: Pain. COMPARISON: None. FINDINGS: 3 views of the right shoulder obtained. There is no acute fracture, dislocation or subluxat ion. There has been distal right clavicular resection. There is minimal marginal glenoid spurring. IMPRESSION: 1. Minimal glenohumeral osteoarthritis. 2. Distal clavicular resection. Electronically signed by: Regina White MD (08/27/2020 11:48 AM) [id number]
== END ==
LOC: KCIC 11:19
PROVIDERS: ATTEND Family Medicine
DX: M19.011 Primary osteoarthritis, right shoulder (principal)
CPT/HCPCS: 73030

== ENCOUNTER → 2021-04-20 | Outpatient (CLI) | payer OTHER ==
[~2021-04-20] MED LIST changes: +CYCL10TA19 PO; -CYCL10TA2 PO; +POTA-121 PO; -POTA20TA4 PO
--- NOTE | 2021-04-20 12:41 | KCIC ---
EXAM: Lumbar spine MRI without contrast. HISTORY: Radiculopathy. TECHNIQUE: Multiplanar, multisequence magnetic resonance imaging of the lumbar spine was performed wi thout contrast. COMPARISON: 07/18/2018. FINDINGS: There is a transitional lumbosacral segment. Based on the number of nonrib-bearing vertebra l segments on comparison studies, this is considered a sacralized L6 segment. Based on this numbering system, there is minimal retrolisthesis of L2 on L3 and L3 on L4. There is degenerative endplate rem odeling with disc space narrowing and osteophytosis primarily at L5 to L6. There are multiple endplat e Schmorl's nodes. There are few osseous hemangiomas. There is no acute or suspicious osseous finding . The conus terminates at L1. At L1-L2, there is no stenosis. At L2-L3, there is a shallow broad-based posterior central disc protrusion and annular tear superimpo sed on a disc bulge and endplate remodeling. There is mild retrolisthesis. There is mild central jose ramon l stenosis. At L3-L4, there is a right lateral predominant disc bulge and endplate osteophytosis. There is mild r ight facet arthropathy. There is mild retrolisthesis. There is mild right foraminal stenosis. There i s mild central canal stenosis. At L4-L5, there is a right lateral recess disc protrusion with 4 mm inferior extrusion superimposed o n a disc bulge and right lateral predominant endplate osteophytosis. There is mild bilateral facet ar thropathy. There are right hemilaminectomy changes. There is mild right foraminal stenosis. There is effacement of the right lateral recess. At L5-L6, there is a broad-based left paracentral to lateral recess disc protrusion with 6 mm inferio r extrusion superimposed on a left lateral predominant disc bulge and endplate osteophytosis. There i s minimal right and moderate left foraminal stenosis. There is effacement of the left lateral recess and abutment the traversing left S1 nerve root. The nerve roots are clumped within the peripheral asp ect of the thecal sac at L5 on L6. This can be seen as a sequela of arachnoiditis. At L6-S1, there is no stenosis. IMPRESSION: 1. Transitional lumbosacral segment. Based on the number of nonrib-bearing vertebral segments, this c onsidered a sacralized L6 segment. 2. Multilevel degenerative change throughout the lumbar spine, described in detail above. This is ass ociated with mild central canal stenosis at L2-L3, mild right foraminal and central canal stenosis at L3-L4, mild right foraminal stenosis and effacement of the right lateral recess at L4-L5, and minima l right and moderate left foraminal stenosis and effacement of the left lateral recess with abutment the traversing left S1 nerve root at L5 to L6. 3. Clumping and peripheral distribution of nerve root within the thecal sac at L5 and L6, a finding w hich can be seen as a sequela of arachnoiditis. 4. Mild scoliosis and mild multilevel listhesis. 5. Right hemilaminectomy changes at L4-L5. 6. Note is made that the aforementioned findings are not significantly changed compared to the prior exam, allowing for differences in imaging technique. Electronically signed by: Regina White MD (04/20/2021 12:39 PM) [id number]
== END ==
LOC: KCIC MRI 10:46
PROVIDERS: ATTEND Family Medicine
DX: M47.26 Other spondylosis with radiculopathy, lumbar region (principal); M48.061 Spinal stenosis, lumbar region without neurogenic claudication; M41.86 Other forms of scoliosis, lumbar region; M25.78 Osteophyte, vertebrae; M51.46 Schmorl's nodes, lumbar region; D18.09 Hemangioma of other sites; M53.86 Other specified dorsopathies, lumbar region; M51.16 Intervertebral disc disorders with radiculopathy, lumbar region
CPT/HCPCS: 72148